=== PATIENT | male | born 1930 | race Caucasian/White ===

== ENCOUNTER 2020-04-06 21:47 | Inpatient (IN) ==
[2020-04-06 22:21] LABS: Hematocrit 48.1 % (42.0-52.0); Hemoglobin 15.8 gm/dL (13.5-18.0); Mean Cell Volume 94.1 fl (78-100); Mean Corpuscular Hemoglobin 30.9 pg (27-31); Mean Corpuscular Hgb Conc 32.8 g/dl (32-36); Mean Platelet Volume 10.2 fl (8-11.3); Neutrophil # 1.7 K/mm3 (1.3-6.0); Neutrophil % 56.7 % (42-75.0); Platelet Count 92 K/mm3 (150-450); Red Blood Count 5.11 M/mm3 (4.7-6.0); Red Cell Distribution Width 12.5 % (11.5-14.0)
[2020-04-06] MEDS ORDERED: cefTRIAXone SODIUM 1,000 MG/100 ML BAG IV ONE (22:26)
[2020-04-06 22:30] LABS: Albumin * 3.3 gm/dl (3.4-5.0); Anion Gap 10.1 mmol/L (6.8-13.8); BUN/Creatinine Ratio 17.1 (9.0-21.6); Bilirubin, Total 0.9 mg/dL (0.0-1.1); Ca. Corrected For Albumin 8.5 mg/dL (8.4-10.2); Calcium * 8.3 mg/dL (7.9-10.9); Potassium 4.1 mmol/L (3.4-4.6); Total Protein 6.9 gm/dL (6.2-8.2)
[2020-04-06] MEDS: NORMAL SALINE 1,000 ML IV SCH (22:34)
--- NOTE | 2020-04-06 22:51 | ERNOTE ---
Medical Problem HPI - Narrative Date of Service: 04/06/20 - General Chief Complaint: Fever Time Seen by Provider: 04/06/20 22:14 Source: patient, family - Immun/Allergies/Home Medications Immunizations: IMMUNIZATION HX Immunizations Up to Date No History of Influenza Vaccine More Information Required Hx Pneumococcal Vaccination Yes Allergies/Adverse Reactions: Allergies No Known Allergies Allergy (Verified 09/12/18 09:00) Home Medications: HOME MEDICATIONS Aspirin [Aspirin EC] 81 mg PO DAILY 07/19/18 [Last Taken Unknown] cetirizine 10 mg tablet 10 mg PO DAILY PRN #30 tab 12/11/18 [Last Taken Unknown] simvastatin 20 mg tablet 20 mg PO HS #90 tab 09/02/19 [Last Taken Unknown] metoprolol tartrate 25 mg tablet 25 mg PO BID #180 tab 10/31/19 [Last Taken Unknown] - History of Present History Narrative: Patient is brought to the emergency room for fever, increasing severity of urinary incontinence and stool incontinence, increasing confusion and weakness. Symptoms have worsened over the last 24 hours. He did have an exposure to coronavirus over the weekend. Patient has underlying dementia. No recent falls Timing: getting worse Review of Systems - Review of Systems Constitutional: Present: fever, chills, weakness, fatigue ENT: Present: no symptoms reported Respiratory: Present: no symptoms reported Cardiology: Present: no symptoms reported Gastrointestinal/Abdominal: Present: diarrhea. Absent: vomiting Genitourinary: Present: other - increased episodes of incontinence. Skin: Absent: rash Psych: Present: no symptoms reported Medical History (Last Reviewed 04/06/20 @ 22:48 by Maria Antonia Bhatti MD) HLD (hyperlipidemia) HTN (hypertension) Surgical History: Surgical History (Last Reviewed 04/06/20 @ 22:48 by Maria Antonia Bhatti MD) Cataract Onset Date: ~2005 Hx laparoscopic cholecystectomy Hx of cardiac cath Hx of total knee arthroplasty Family History: Family History (Last Reviewed 04/06/20 @ 22:48 by Maria Antonia Bhatti MD) Father Cancer Myocardial infarction Mother Dementia Sister Dementia Brother Heart disease Social History: (Last Reviewed 04/06/20 @ 22:48 by Maria Antonia Bhatti MD) Social History: Marital status: current occupational status: retired Highest education level completed: high school graduate Service: Yes Tobacco: Smoking Status: Never smoker Alcohol: alcohol intake: never Substance Use: substance use type: does not use Dietary Habits: caffeine: Yes Physical Exam - Physical Exam General Appearance: Present: alert, no apparent distress, other - dementia noted, answers questions appropriately. lips are dry Head Exam: Present: normal inspection, no evidence of injury Eye Exam: Normal inspection: bilateral, PERRL: bilateral Ears, Nose, Throat: Present: normal ENT inspection, normal pharynx Neck: Present: normal inspection, supple Respiratory: Present: no respiratory distress, lungs clear Cardiovascular/Chest: Present: regular rate, rhythm Gastrointestinal/Abdominal: Present: normal bowel sounds, soft, other - There is a ventral hernia noted on the right side of the umbilicus. This is nontender. The patient has mild suprapubic tenderness. no rebound, guarding or peritonitis. Male Genitals Exam: Present: normal genitalia - no sores or lesions Back Exam: Present: normal inspection Extremity Exam: Present: non-tender, no edema - strength is maintained 5/5 all four ext Skin Exam: Present: normal color, warm/dry Progress - Results and Orders Patient's Lab Results:: I have reviewed the patient's lab results. Results and Orders: Laboratory Tests 04/06/20 04/06/20 04/06/20 22:10 22:10 22:10 WBC 3.0 L Hgb 15.8 Hct 48.1 Plt Count 92 L Monocytes % 10.4 H Neutrophils # 1.7 Lymphocytes # 0.95 L Sodium 137 Potassium 4.1 Chloride 103 BUN 29 H Creatinine 1.70 H Est GFR (Non-Af Amer) 41 L D Random Glucose 117 H Lactic Acid, Venous 1.9 AST 42 ALT 27 Urine Glucose (UA) Urine Ketones Urine Blood Urine Nitrate Urine Bilirubin Prot Sulfosalicylic Acd Urine Urobilinogen Ur Leukocyte Esterase Urine RBC Urine WBC Ur Epithelial Cells Urine Bacteria Influenza Type A Ag Influenza Type B Ag 04/06/20 04/06/20 22:28 22:55 WBC Hgb Hct Plt Count Monocytes % Neutrophils # Lymphocytes # Sodium Potassium Chloride BUN Creatinine Est GFR (Non-Af Amer) Random Glucose Lactic Acid, Venous AST ALT Urine Glucose (UA) Negative Urine Ketones 5 Urine Blood 5 H Urine Nitrate Negative Urine Bilirubin Negative Prot Sulfosalicylic Acd Negative Urine Urobilinogen Normal Ur Leukocyte Esterase Negative Urine RBC 0-5 Urine WBC None seen Ur Epithelial Cells None seen Urine Bacteria None seen Influenza Type A Ag Negative Influenza Type B Ag Negative - Vital Signs Patient's Vital Signs:: I have reviewed the patient's vital signs. Vital Signs: Vital Signs 04/06/20 21:59 04/06/20 22:34 Temperature 37.8 C Pulse Rate 95 91 Respiratory Rate 20 20 Blood Pressure 135/86 130/67 O2 Sat by Pulse Oximetry 96 97 - EKG EKG #1 EKG: NSR EKG read: Interp. by me EKG Comments: EKG shows normal sinus rhythm, ventricular rate is 92, no ST changes noted. - X-Ray X-Ray #1 X-Ray: chest Interpretation: Interp. by me X-ray Comments: patchy right lung mid infiltrate. - Progress/Reassessment Chief Complaint: Fever Progress Note-Subjective: 04/06/20 23:52 Patient's labs are essentially unremarkable, his creatinine is mildly elevated over his baseline which was drawn a few months ago. His white blood cell count is normal, lactic is normal, the urine is also normal. His chest x-ray shows right-sided patchy infiltrate. After the patient arrived he did develop a fever of 102. He is given 1 L of fluids, 650 of Tylenol. I discussed the community- acquired pneumonia in an 89-year-old with underlying medical conditions including dementia with hospitalist on-call, Dr. Bradshaw who agrees that this patient should be admitted here for observation and care of the community- acquired pneumonia, Covid test is pending. Patient is given Rocephin, Zithromax for coverage here of the community-acquired pneumonia, this is after blood cultures have been obtained. 04/07/20 00:35 Phoned by the lab for critical result, his Covid test has returned positive. He will be admitted to the unit rather than [facility] floor. He remained stable. Recent order for ibuprofen to try to bring fever down. Departure Clinical Impression: CAP (community acquired pneumonia), Fever, COVID-19 - Departure Disposition: Still a patient Condition: Fair
[2020-04-06 23:01] LABS: Urine Bilirubin Negative (NEGATIVE); Urine Ketone 5 mg/dL (NEGATIVE); Urine Nitrite Negative (NEGATIVE); Urine Protein 100 mg/dL (NEGATIVE); Urine Specific Gravity >=1.030 SP.GR. (1.005-1.030); Urine Urobilinogen Normal (NORMAL); Urine pH 5.5 pH (5.0-7.0)
[2020-04-06 23:08] LABS: Urine Appearance Clear (CLEAR); Urine Bacteria None Seen; Urine Blood 5 /ul (NEGATIVE); Urine Color Dark Yellow; Urine RBC 0-5 /hpf (0-5); Urine WBC None Seen /hpf (0-5)
[2020-04-06] MEDS ORDERED: ACETAMINOPHEN 325 MG TABLET PO ONE (23:16)
[2020-04-06] MEDS ORDERED: AZITHROMYCIN 250 MG TABLET PO ONE (23:41)
[2020-04-07] MEDS ORDERED: IBUPROFEN 600 MG TABLET PO ONE (00:20)
[2020-04-07] MEDS: NORMAL SALINE 1,000 ML IV SCH ×2 (05:50→05:51)
[2020-04-07] MEDS ORDERED: NORMAL SALINE 1,000 ML IV ONE (08:48)
[2020-04-07] MEDS ORDERED: NORMAL SALINE 1,000 ML IV PRN (09:12)
[2020-04-07] MEDS: METOPROLOL TARTRATE 25 MG TABLET PO SCH ×2 (09:33→21:15)
[2020-04-07] MEDS: ASPIRIN 81 MG TABLET.DR PO SCH (09:33)
[2020-04-07] MEDS: ENOXAPARIN SODIUM 40 MG/0.4 ML SYRG SC SCH ×2 (09:33→21:15)
[2020-04-07] MEDS ORDERED: FLU VACC QS2020-21(6MOS UP)/PF 60 MCG/0.5 ML SYRINGE IM ONE (10:00)
[2020-04-07 17:55] LABS: Anion Gap 8.2 mmol/L (6.8-13.8); BUN/Creatinine Ratio 21.7 (9.0-21.6); Calcium * 7.7 mg/dL (7.9-10.9); Carbon Dioxide 28.5 mmol/L (24-32.6); Estimated Creat Clear 52.2; Potassium 3.7 mmol/L (3.4-4.6)
[2020-04-07] MEDS: SIMVASTATIN 20 MG TABLET PO SCH (21:15)
[2020-04-07] MEDS: ACETAMINOPHEN 500 MG TABLET PO PRN (21:16)
[2020-04-08] MEDS: ACETAMINOPHEN 500 MG TABLET PO PRN (06:29)
--- NOTE | 2020-04-08 08:23 | HP ---
Chief Complaint - Chief Complaint Date of Service: 04/07/20 Time of Service: 08:45 Chief Complaint: fever, weakness History of Present Illness: 89-year-old male with history of hypertension, hyperlipidemia, dementia brought into the hospital due to fever, and weakness. Patient was also having some incontinent bowel and bladder issues. Patient was found be positive for COVID- 19. X-ray concerning for possible right middle lobe pneumonia. Aside from an acute kidney injury seen in the ER blood work was normal including normal white blood cell count, normal lactic acid, and his vital signs been normal. Patient has been afebrile since being in the hospital. Patient is on room air, denies cough or shortness of breath. Patient was placed under observation and brought to the [facility] due to positive COVID-19 as well as his fever and weakness. Patient seen in the unit was pleasant and had no concerns. Medical History (Last Reviewed 04/07/20 @ 03:04 by Carissa Aggarwal RN) HLD (hyperlipidemia) HTN (hypertension) Surgical History: Surgical History (Last Reviewed 04/07/20 @ 03:04 by Carissa Aggarwal RN) Cataract Onset Date: ~2005 Hx laparoscopic cholecystectomy Hx of cardiac cath Hx of total knee arthroplasty Family History: Family History (Last Reviewed 04/06/20 @ 22:48 by Maria Antonia Bhatti MD) Father Cancer Myocardial infarction Mother Dementia Sister Dementia Brother Heart disease Social History: (Last Reviewed 04/06/20 @ 22:48 by Maria Antonia Bhatti MD) Social History: Marital status: current occupational status: retired Highest education level completed: high school graduate Service: Yes Tobacco: Smoking Status: Never smoker Alcohol: alcohol intake: never Substance Use: substance use type: does not use Dietary Habits: caffeine: Yes Review Of Systems (GEN) - Review of Systems Generalized/Overall Review: Present: Weakness. Absent: Chills, Fever EENTM: Present: No Symptoms Reported Respiratory: Present: No Symptoms Reported. Absent: Cough, Shortness of Breath Cardiac: Absent: Chest Pain, Edema, Palpitations Abdominal: Present: No Symptoms Reported Genitourinary: Present: No Symptoms Reported Neurological: Present: Pre-existing Deficit - Dementia. Absent: Headache Skin: Present: No Symptoms Reported Endocrine: Present: No Symptoms Reported Immunizations: IMMUNIZATION HX Immunizations Up to Date No History of Influenza Vaccine More Information Required Hx Pneumococcal Vaccination Yes Allergies/Adverse Reactions: Allergies Allergy/AdvReac Type Severity Reaction Status Date / Time No Known Allergies Allergy Verified 09/12/18 09:00 Home Medications: HOME MEDICATIONS Aspirin [Aspirin EC] 81 mg PO DAILY 07/19/18 [Last Taken Unknown] cetirizine 10 mg tablet 10 mg PO DAILY PRN #30 tab 12/11/18 [Last Taken Unknown] simvastatin 20 mg tablet 20 mg PO HS #90 tab 09/02/19 [Last Taken Unknown] metoprolol tartrate 25 mg tablet 25 mg PO BID #180 tab 10/31/19 [Last Taken Unknown] Exam - Exam Vital Signs: Vital Signs - Last Taken Temp 37.4 C 04/08/20 07:30 Pulse 82 04/08/20 05:32 Resp 16 04/08/20 05:32 BP 130/58 04/08/20 05:32 Pulse Ox 96 04/08/20 05:32 Constitutional: Present: Alert, Cooperative, No distress. Absent: Oriented x3 - X2 ENT Exam: Present: hearing grossly normal. Absent: nasal congestion, nasal drainage Eye Exam: bilateral eye: normal inspection, EOMI Neck: Present: non-tender, supple Respiratory: Present: lungs clear, normal breath sounds Cardiovascular/Chest: Present: regular rate, rhythm, no murmur Peripheral Pulses: dorsalis-pedis (R): 2+, dorsalis-pedis (L): 2+ Abdomen: Present: soft, nontender, nondistended Skin Exam: Present: normal color, warm/dry Appearance: Present: appropriate appearance, appropriate insight Eye contact: Present: cooperative, good eye contact Thoughts: Present: normal mood /affect Diagnostic Studies: Abnormal Lab Results 04/07/20 Range/Units 17:26 BUN 26 H (6-23) mg/dL BUN/Creatinine Ratio 21.7 H (9.0-21.6) Calcium 7.7 L (7.9-10.9) mg/dL Microbiology 04/06/20 22:40 Blood Culture - Preliminary Blood NO GROWTH 24 HOURS 04/06/20 22:10 Blood Culture - Preliminary Blood NO GROWTH 24 HOURS Laboratory Results WBC 3.0 K/mm3 (4.0-10.5) L 04/06/20 22:10 RBC 5.11 M/mm3 (4.7-6.0) 04/06/20 22:10 Hgb 15.8 gm/dL (13.5-18.0) 04/06/20 22:10 Hct 48.1 % (42.0-52.0) 04/06/20 22:10 MCV 94.1 fl (78-100) 04/06/20 22:10 MCH 30.9 pg (27-31) 04/06/20 22:10 MCHC 32.8 g/dl (32-36) 04/06/20 22:10 RDW 12.5 % (11.5-14.0) 04/06/20 22:10 Plt Count 92 K/mm3 (150-450) L 04/06/20 22:10 MPV 10.2 fl (8-11.3) 04/06/20 22:10 Immature Gran % (Auto) 0.30 % (0.001-0.429) 04/06/20 22:10 Immature Gran # (Auto) 0.01 K/mm3 (0.000-0.0310) 04/06/20 22:10 Neutrophils % 56.7 % (42-75.0) 04/06/20 22:10 Lymphocytes % 31.9 % (20-51) 04/06/20 22:10 Monocytes % 10.4 % (0.0-9) H 04/06/20 22:10 Eosinophils % 0.0 % (0.0-3.0) 04/06/20 22:10 Basophils % 0.7 % (0.0-1.0) 04/06/20 22:10 Nucleated RBC % 0.0 k/mm3 (0-1) 04/06/20 22:10 Neutrophils # 1.7 K/mm3 (1.3-6.0) 04/06/20 22:10 Lymphocytes # 0.95 k/mm3 (1.5-3.5) L 04/06/20 22:10 Monocytes # 0.3 k/mm3 (0.0-1.0) 04/06/20 22:10 Eosinophils # 0.0 k/mm3 (0.0-0.7) 04/06/20 22:10 Absolute Basophils 0.0 k/mm3 (0.0-0.1) 04/06/20 22:10 Sodium 139 mmol/L (132-142) 04/07/20 17:26 Plasma Sodium 139 mmol/L (130-142) 04/07/20 17:26 Potassium 3.7 mmol/L (3.4-4.6) 04/07/20 17:26 Chloride 106 mmol/L (97-106) 04/07/20 17:26 Carbon Dioxide 28.5 mmol/L (24-32.6) 04/07/20 17:26 Anion Gap 8.2 mmol/L (6.8-13.8) 04/07/20 17:26 BUN 26 mg/dL (6-23) H 04/07/20 17:26 Creatinine 1.20 mg/dL (0.4-1.4) 04/07/20 17:26 Est GFR (Non-Af Amer) 61 mL/min (60-130) D 04/07/20 17: BUN/Creatinine Ratio 21.7 (9.0-21.6) H 04/07/20 17:26 Random Glucose 94 mg/dL (70-110) 04/07/20 17:26 Lactic Acid, Venous 1.9 mmol/L (0.4-2.0) 04/06/20 22:10 Calcium 7.7 mg/dL (7.9-10.9) L 04/07/20 17:26 Calcium Adj for Albumin 8.5 mg/dL (8.4-10.2) 04/06/20 22:10 Total Bilirubin 0.9 mg/dL (0.0-1.1) 04/06/20 22:10 AST 42 U/L (0-48) 04/06/20 22:10 ALT 27 U/L (19-67) 04/06/20 22:10 Alkaline Phosphatase 53 U/L (50-170) 04/06/20 22:10 Total Protein 6.9 gm/dL (6.2-8.2) 04/06/20 22:10 Albumin 3.3 gm/dl (3.4-5.0) L 04/06/20 22:10 Urine Color Dark yellow 04/06/20 22:28 Urine Appearance Clear (CLEAR) 04/06/20 22:28 Urine pH 5.5 pH (5.0-7.0) 04/06/20 22:28 Ur Specific [place] >=1.030 SP.GR. (1.005-1.030) 04/06/20 22:28 Urine Protein 100 mg/dL (NEGATIVE) H 04/06/20 22:28 Urine Glucose (UA) Negative mg/dL (NEGATIVE) 04/06/20 22: Urine Ketones 5 mg/dL (NEGATIVE) 04/06/20 22:28 Urine Blood 5 /ul (NEGATIVE) H 04/06/20 22:28 Urine Nitrate Negative (NEGATIVE) 04/06/20 22: Urine Bilirubin Negative mg/dl (NEGATIVE) 04/06/20 22:28 Prot Sulfosalicylic Acd Negative mg/dL (0) 04/06/20 22:28 Urine Urobilinogen Normal EU/dl (NORMAL) 04/06/20 22: Ur Leukocyte Esterase Negative /ul (NEGATIVE) 04/06/20 22: Urine RBC 0-5 /hpf (0-5) 04/06/20 22: Urine WBC None seen /hpf (0-5) 04/06/20 22: Ur Epithelial Cells None seen /hpf (0-5) 04/06/20 22:28 Urine Bacteria None seen (NONE) 04/06/20 22:28 Urine Culture Comments No culture indicated 04/06/20 22:28 Influenza Type A Ag Negative (NEGATIVE) 04/06/20 22:55 Influenza Type B Ag Negative (NEGATIVE) 04/06/20 22:55 SARS-CoV-2 (PCR) Detected (NotDetected) H 04/06/20 22:47 Assessment/Plan - Narrative Narrative: Very pleasantly demented 89-year-old male with history of hypertension, hyperlipidemia, and dementia placed in observation due to positive COVID-19 test and suspected COVID-19 pneumonia. Aside from an acute kidney injury, blood work within normal limits in the ER. Patient not requiring supplemental oxygen to maintain sats. Patient with normal appetite. Due to clinical picture no steroids to be started at this time but will start him on Lovenox twice daily. If patient begins to have more symptoms secondary to the infection including cough, shortness of breath, or fevers then will start him on prednisone. Restarted home medications for his blood pressure. Currently well controlled. Patient started on regular diet. Normal saline running at 125 an hour x1 bag, will recheck CMP in the morning to look at kidney function. Electrolytes within normal notes. Nurse to call with questions or concerns. Unless clinical picture changes, patient likely to be discharged home tomorrow. - Assessment/Plan (1) Fever Problem: Acute (2) COVID-19 Problem: Acute (3) Hypertension Problem: Acute (4) Acute kidney injury Problem: Acute
[2020-04-08] MEDS ORDERED: ACETAMINOPHEN 325 MG TABLET PO SCH (09:00)
[2020-04-08] MEDS: METOPROLOL TARTRATE 25 MG TABLET PO SCH ×2 (09:19→21:40)
[2020-04-08] MEDS: ENOXAPARIN SODIUM 40 MG/0.4 ML SYRG SC SCH ×2 (09:19→21:41)
[2020-04-08] MEDS: predniSONE 20 MG TABLET PO SCH (09:19)
[2020-04-08] MEDS: ASPIRIN 81 MG TABLET.DR PO SCH (09:19)
[2020-04-08] MEDS: ACETAMINOPHEN 325 MG TABLET PO SCH ×2 (11:53→19:23)
--- NOTE | 2020-04-08 16:18 | PN ---
Subjective - Date and Time Seen Date: 04/08/20 Time: 16:13 Subjective Narrative: Mynor is resting comfortably in his bed at this time. Patient did have multiple fevers overnight and was started on Tylenol. Patient feels well and is breathing easy. Nurse concerned with his weakness, has trouble getting up to use the restroom due to it. Cannot order physical therapy at this time due to active COVID-19 infection. His vital signs are stable otherwise and there are no acute events overnight. Objective - Review of Systems Generalized/Overall Review: Reports: Weakness, Fever. Denies: Chills EENTM: Reports: No Symptoms Reported Respiratory: Reports: No Symptoms Reported Cardiac: Reports: No Symptoms Reported Abdominal: Reports: No Symptoms Reported Genitourinary Symptoms: Reports: No Symptoms Reported Musculoskeletal Complaints: Reports: No Symptoms Reported Neurological: Reports: No Symptoms Reported Skin: Reports: No Symptoms Reported - Vitals Vitals: Last Vital Signs Temp 36.8 C 04/08/20 15:00 Pulse 62 04/08/20 15:00 Resp 16 04/08/20 15:00 BP 139/91 H 04/08/20 15:00 Pulse Ox 97 04/08/20 15:00 - Abnormal Lab Findings Abnormal Lab Findings: Abnormal Lab Results 04/07/20 Range/Units 17:26 BUN 26 H (6-23) mg/dL BUN/Creatinine Ratio 21.7 H (9.0-21.6) Calcium 7.7 L (7.9-10.9) mg/dL - Exam Constitutional: Present: Alert, Oriented x3, No distress ENT Exam: Present: hard of hearing. Absent: nasal congestion, nasal drainage Respiratory: Present: lungs clear, normal breath sounds, no respiratory distress Cardiovascular/Chest: Present: regular rate, rhythm, no murmur Abdomen: Present: Normal bowel sounds, soft, nontender, nondistended Extremity: Present: non-tender. Absent: lower extremity edema Skin Exam: Present: normal color, warm/dry Appearance: Present: appropriate appearance, impaired insight Eye contact: Present: cooperative, good eye contact Thoughts: Present: normal thought pattern, normal mood /affect Assessment/Plan Plan Narrative: Patient unable to go home today due to fevers and weakness as previously anticipated. Patient made inpatient. Patient started on steroids this morning. Will repeat lab work this afternoon. Kidney function had resolved back to baseline, found to be within normal limits. Patient not requiring supplemental oxygen. Tylenol scheduled for his fevers and aches. Cannot order PT at this time due to active COVID-19 infection but patient deftly would benefit from physical therapy. Like left order this after he is no longer contagious. Continue current diet. Hypertension well controlled. Acute kidney injury resolved. We will continue to monitor patient, nurse to call questions or concerns. Patient is on Lovenox twice daily. - Problems/Diagnosis (1) COVID-19 Problem: Acute (2) Fever Problem: Acute (3) Hypertension Problem: Acute (4) Acute kidney injury Problem: Acute (5) Pneumonia due to COVID-19 virus Problem: Acute
[2020-04-08 17:16] LABS: Hematocrit 45.5 % (42.0-52.0); Hemoglobin 15.2 gm/dL (13.5-18.0); Mean Cell Volume 91.7 fl (78-100); Mean Corpuscular Hemoglobin 30.6 pg (27-31); Mean Corpuscular Hgb Conc 33.4 g/dl (32-36); Platelet Count 83 K/mm3 (150-450); Red Blood Count 4.96 M/mm3 (4.7-6.0); Red Cell Distribution Width 12.1 % (11.5-14.0); White Blood Count 1.3 K/mm3 (4.0-10.5)
[2020-04-08 17:19] LABS: Total Cells Counted 100
[2020-04-08 17:30] LABS: Lymphocyte 37 % (20-51); Monocyte 3 % (0-9); Neutrophil 60 % (42-75); Neutrophil # 0.8 K/mm3 (1.3-6.0); Platelet Estimate Decreased (NORMAL); RBC Morphology Normal (NORMAL)
[2020-04-08 17:56] LABS: Anion Gap 10.1 mmol/L (6.8-13.8); BUN/Creatinine Ratio 16.4 (9.0-21.6); Calcium * 7.9 mg/dL (7.9-10.9); Estimated Creat Clear 51.4; Potassium 4.1 mmol/L (3.4-4.6)
[2020-04-08] MEDS ORDERED: AZITHROMYCIN 250 MG TABLET PO ONE (19:00)
[2020-04-08] MEDS: SIMVASTATIN 20 MG TABLET PO SCH (21:41)
[2020-04-09] MEDS: ACETAMINOPHEN 325 MG TABLET PO SCH ×2 (01:47→07:18)
[2020-04-09] MEDS: predniSONE 20 MG TABLET PO SCH (08:16)
[2020-04-09] MEDS: ASPIRIN 81 MG TABLET.DR PO SCH (08:16)
[2020-04-09] MEDS: ENOXAPARIN SODIUM 40 MG/0.4 ML SYRG SC SCH ×2 (08:17→20:23)
[2020-04-09] MEDS: METOPROLOL TARTRATE 25 MG TABLET PO SCH ×2 (08:17→20:24)
[2020-04-09 09:09] LABS: Hematocrit 43.7 % (42.0-52.0); Hemoglobin 14.9 gm/dL (13.5-18.0); Mean Cell Volume 90.5 fl (78-100); Mean Corpuscular Hemoglobin 30.8 pg (27-31); Mean Corpuscular Hgb Conc 34.1 g/dl (32-36); Mean Platelet Volume 10.2 fl (8-11.3); Neutrophil # 2.5 K/mm3 (1.3-6.0); Neutrophil % 79.1 % (42-75.0); Platelet Count 104 K/mm3 (150-450); Red Blood Count 4.83 M/mm3 (4.7-6.0); Red Cell Distribution Width 12.1 % (11.5-14.0); White Blood Count 3.2 K/mm3 (4.0-10.5)
[2020-04-09] MEDS ORDERED: ACETAMINOPHEN 325 MG TABLET PO PRN (10:26)
--- NOTE | 2020-04-09 10:28 | PN ---
Subjective - Date and Time Seen Date: 04/09/20 Time: 09:59 Subjective Narrative: He denies chest pain, shortness of breath or cough. Nursing staff states he has not had any fevers since yesterday but he is also on Tylenol [id number]. Objective - Review of Systems Generalized/Overall Review: Denies: Chills, Fever Respiratory: Denies: Cough, Shortness of Breath Cardiac: Denies: Chest Pain Abdominal: Denies: Abdominal Pain Misc: All systems neg except as marked - Vitals Vitals: Last Vital Signs Temp 36.7 C 04/09/20 06:00 Pulse 91 04/09/20 08:17 Resp 20 04/09/20 06:00 BP 136/94 H 04/09/20 08:17 Pulse Ox 95 04/09/20 06:00 - Abnormal Lab Findings Abnormal Lab Findings: Abnormal Lab Results 04/08/20 04/08/20 04/09/20 Range/Units 17:10 17:10 08:50 WBC 1.3 L D 3.2 L D (4.0-10.5) K/mm3 Plt Count 83 L 104 L (150-450) K/mm3 Immature Gran % (Auto) 0.60 H (0.001-0.429) % Neutrophils % 79.1 H (42-75.0) % Lymphocytes % 14.4 L (20-51) % Neutrophils # (Manual) 0.8 L (1.3-6.0) K/mm3 Lymphocytes # 0.46 L (1.5-3.5) k/mm3 Lymphocytes # (Manual) 0.5 L (1.5-3.5) k/mm3 Platelet Estimate Decreased L (NORMAL) Random Glucose 154 H D (70-110) mg/dL - Exam Constitutional: Present: Alert, Cooperative, Well developed, Well nourished, No distress, Elderly ENT Exam: Present: hearing grossly normal Neck: Present: non-tender, supple. Absent: lymphadenopathy (R), lymphadenopathy (L) Respiratory: Present: lungs clear, no respiratory distress Cardiovascular/Chest: Present: regular rate, rhythm, no edema Abdomen: Present: Normal bowel sounds, soft, nontender Extremity: Present: no pedal edema Skin Exam: Present: normal color, warm/dry Neurologic: Present: alert, normal mood/affect Appearance: Present: appropriate appearance Eye contact: Present: cooperative Thoughts: Present: normal thought pattern, normal mood /affect Assessment/Plan Plan Narrative: 89-year-old male with a past medical history of hypertension hyperlipidemia and dementia presents with fever and weakness. He was found to have acute kidney injury and be positive for Covid 19 COVID-19. He received IV fluid hydration, and did not require oxygen supplementation. On the day of planned discharge she developed a fever and was subsequently started on azithromycin and ceftriaxone. Today he is stable and has no complaints. He has not had fever for the past 24 hours but has been on Tylenol [id number] every 6 hours scheduled. I will change his Tylenol to as needed. He is also weak and deconditioned and I have ordered physical therapy. Plan #1 continue with ceftriaxone and azithromycin day 1 #2 change Tylenol to 6 achieve milligrams every 6 hours as needed #3 physical therapy ordered #4 continue with home home medications for comorbidities. #5 possible discharge planning if he remains afebrile without Tylenol for the next 24 hours. He will be discharged home with home health. - Problems/Diagnosis (1) Pneumonia due to COVID-19 virus Problem: Acute (2) Acute kidney injury Problem: Acute (3) Fever Problem: Acute (4) Hypertension Problem: Acute
[2020-04-09] MEDS: SIMVASTATIN 20 MG TABLET PO SCH (20:24)
[2020-04-09] MEDS ORDERED: AZITHROMYCIN 250 MG TABLET PO SCH (21:00)
[2020-04-10 07:34] LABS: Hematocrit 46.1 % (42.0-52.0); Hemoglobin 15.6 gm/dL (13.5-18.0); Mean Cell Volume 89.7 fl (78-100); Mean Corpuscular Hemoglobin 30.4 pg (27-31); Mean Corpuscular Hgb Conc 33.8 g/dl (32-36); Mean Platelet Volume 9.9 fl (8-11.3); Neutrophil # 2.2 K/mm3 (1.3-6.0); Neutrophil % 59.3 % (42-75.0); Platelet Count 124 K/mm3 (150-450); Red Blood Count 5.14 M/mm3 (4.7-6.0); Red Cell Distribution Width 11.9 % (11.5-14.0); White Blood Count 3.6 K/mm3 (4.0-10.5)
[2020-04-10 07:47] LABS: Albumin * 2.9 gm/dl (3.4-5.0); Anion Gap 12.5 mmol/L (6.8-13.8); BUN/Creatinine Ratio 17.6 (9.0-21.6); Bilirubin, Total 0.8 mg/dL (0.0-1.1); Ca. Corrected For Albumin 8.5 mg/dL (8.4-10.2); Calcium * 7.9 mg/dL (7.9-10.9); Carbon Dioxide 24.3 mmol/L (24-32.6); Potassium 3.8 mmol/L (3.4-4.6); Total Protein 6.5 gm/dL (6.2-8.2)
[2020-04-10] MEDS: ENOXAPARIN SODIUM 40 MG/0.4 ML SYRG SC SCH (08:03)
[2020-04-10] MEDS: METOPROLOL TARTRATE 25 MG TABLET PO SCH (08:03)
[2020-04-10] MEDS: ASPIRIN 81 MG TABLET.DR PO SCH (08:03)
[2020-04-10] MEDS: predniSONE 20 MG TABLET PO SCH (08:03)
--- NOTE | 2020-04-10 10:37 | DS ---
(1) Pneumonia due to COVID-19 virus Problem: Acute (2) Acute kidney injury Problem: Acute (3) Fever Problem: Acute (4) Hypertension Problem: Acute Hospital Course: 89-year-old male with a past medical history of hypertension hyperlipidemia and dementia presents with fever and weakness. He was found to have acute kidney injury and be positive for Covid 19 COVID-19. He received IV fluid hydration, and did not require oxygen supplementation. On the day of planned discharge she developed a fever and was subsequently started on azithromycin and ceftriaxone. Today he is stable and has no complaints. He continues to be afebrile. I will send him home on 3 more days of azithromycin 250 mg daily. He is stable to be discharged home today with home health. Mynor Albert is homebound due to having COVID-19. The need for retirement is for medication management and monitoring of vitals. The need for physical therapy is for strengthening, endurance, gait/balance issues, mobility issues, ADL teaching to be safe. The need for home health care skilled services is directly related to the time spent [id number] with the person. Procedures Performed: none Results and Findings: Pending Mircobiology Results 04/06/20 22:40 Blood Blood Culture - Preliminary NO GROWTH AFTER 48 HOURS 04/06/20 22:10 Blood Blood Culture - Preliminary NO GROWTH AFTER 48 HOURS Lab Pending Results 04/06/20 22:10: WBC 3.0 L, RBC 5.11, Hgb 15.8, Hct 48.1, MCV 94.1, MCH 30.9, MCHC 32.8, RDW 12.5, Plt Count 92 L, MPV 10.2, Immature Gran % (Auto) 0.30, Immature Gran # (Auto) 0.01, Neutrophils % 56.7, Lymphocytes % 31.9, Monocytes % 10.4 H, Eosinophils % 0.0, Basophils % 0.7, Nucleated RBC % 0.0, Neutrophils # 1.7, Lymphocytes # 0.95 L, Monocytes # 0.3, Eosinophils # 0.0, Absolute Basophils 0.0 04/06/20 22:10: Sodium 137, Plasma Sodium 137, Potassium 4.1, Chloride 103, Carbon Dioxide 28.0, Anion Gap 10.1, BUN 29 H, Creatinine 1.70 H, Est GFR (Non- Af Amer) 41 L D, BUN/Creatinine Ratio 17.1, Random Glucose 117 H, Calcium 8.3, Calcium Adj for Albumin 8.5, Total Bilirubin 0.9, AST 42, ALT 27, Alkaline Phosphatase 53, Total Protein 6.9, Albumin 3.3 L 04/06/20 22:10: Lactic Acid, Venous 1.9 04/06/20 22:28: Urine Color Dark yellow, Urine Appearance Clear, Urine pH 5.5, Ur Specific [place] >=1.030, Urine Protein 100 H, Urine Glucose (UA) Negative, Urine Ketones 5, Urine Blood 5 H, Urine Nitrate Negative, Urine Bilirubin Negative, Prot Sulfosalicylic Acd Negative, Urine Urobilinogen Normal, Ur Leukocyte Esterase Negative, Urine RBC 0-5, Urine WBC None seen, Ur Epithelial Cells None seen, Urine Bacteria None seen, Urine Culture Comments No culture indicated 04/06/20 22:47: SARS-CoV-2 (PCR) Detected H 04/06/20 22:55: Influenza Type A Ag Negative, Influenza Type B Ag Negative 04/07/20 17:26: Sodium 139, Plasma Sodium 139, Potassium 3.7, Chloride 106, Carbon Dioxide 28.5, Anion Gap 8.2, BUN 26 H, Creatinine 1.20, Est GFR (Non-Af Amer) 61 D, BUN/Creatinine Ratio 21.7 H, Random Glucose 94, Calcium 7.7 L 04/08/20 17:10: WBC 1.3 L D, RBC 4.96, Hgb 15.2, Hct 45.5, MCV 91.7, MCH 30.6, MCHC 33.4, RDW 12.1, Plt Count 83 L, MPV 10.0, Neutrophils % (Manual) 60, Lymphocytes % (Manual) 37, Monocytes % (Manual) 3, Neutrophils # (Manual) 0.8 L, Lymphocytes # (Manual) 0.5 L, Monocytes # (Manual) 0.0, Platelet Estimate Decreased L, RBC Morphology Normal 04/08/20 17:10: Sodium 136, Plasma Sodium 137, Potassium 4.1, Chloride 102, Carbon Dioxide 28.0, Anion Gap 10.1, BUN 20, Creatinine 1.22, Est GFR (Non-Af Amer) 60, BUN/Creatinine Ratio 16.4, Random Glucose 154 H D, Calcium 7.9 04/09/20 08:50: WBC 3.2 L D, RBC 4.83, Hgb 14.9, Hct 43.7, MCV 90.5, MCH 30.8, MCHC 34.1, RDW 12.1, Plt Count 104 L, MPV 10.2, Immature Gran % (Auto) 0.60 H, Immature Gran # (Auto) 0.02, Neutrophils % 79.1 H, Lymphocytes % 14.4 L, Monocytes % 5.6, Eosinophils % 0.0, Basophils % 0.3, Nucleated RBC % 0.0, Neutrophils # 2.5, Lymphocytes # 0.46 L, Monocytes # 0.2, Eosinophils # 0.0, Absolute Basophils 0.0 04/10/20 07:24: WBC 3.6 L, RBC 5.14, Hgb 15.6, Hct 46.1, MCV 89.7, MCH 30.4, MCHC 33.8, RDW 11.9, Plt Count 124 L, MPV 9.9, Immature Gran % (Auto) 0.80 H, Immature Gran # (Auto) 0.03, Neutrophils % 59.3, Lymphocytes % 30.0, Monocytes % 9.6 H, Eosinophils % 0.0, Basophils % 0.3, Nucleated RBC % 0.0, Neutrophils # 2.2, Lymphocytes # 1.09 L, Monocytes # 0.4, Eosinophils # 0.0, Absolute Basop hils 0.0 04/10/20 07:24: Sodium 135, Plasma Sodium 135, Potassium 3.8, Chloride 102, Carbon Dioxide 24.3, Anion Gap 12.5, BUN 22, Creatinine 1.25, Est GFR (Non-Af Amer) 58 L, BUN/Creatinine Ratio 17.6, Random Glucose 107 D, Calcium 7.9, Calcium Adj for Albumin 8.5, Total Bilirubin 0.8, AST 68 H, ALT 34, Alkaline Phosphatase 50, Total Protein 6.5, Albumin 2.9 L Discharge Location: Home Disposition: Home Health Service Home Health Agency: [facility] Condition: Fair Discharge Activity: Activity as tolerated Discharge Diet: General/regular food Problem Oriented Discharge Instructions to Patient/Family: Acute Kidney Injury, Adult, COVID-19, Community-Acquired Pneumonia, Adult, [id number] Additional Patient Instructions (free text): [facility] new at discharge- please fax discharge instructions, medications, and call report. Prescriptions (Any new or edited meds): Azithromycin [Zithromax] 250 mg PO HS #3 tab Transmission Status: Pending to [facility] [place], [place] Complete Home Medications List: Complete Home Medication List: Aspirin [Aspirin EC] 81 mg PO DAILY 07/19/18 cetirizine 10 mg tablet 10 mg PO DAILY PRN #30 tab 12/11/18 simvastatin 20 mg tablet 20 mg PO HS #90 tab 09/02/19 metoprolol tartrate 25 mg tablet 25 mg PO BID #180 tab 10/31/19 Acetaminophen [Tylenol] 650 mg PO Q6H PRN tablet 04/10/20 Azithromycin [Zithromax] 250 mg PO HS #3 tab 04/10/20 Forms: Patient Portal Registration
[2020-04-10 16:35] VITALS: BP 141/75
== END 2020-04-10 16:01 | disposition home health service (06) | DRG 177 ==
LOC: ER 21:47 → SCU 21:47 → OBSVTOIN 04-07 01:12 → SCU 04-07 02:09
PROVIDERS: ADMIT Internal Medicine; ATTEND Family Medicine
DX: E78.5 Hyperlipidemia, unspecified; I10 Essential (primary) hypertension; F03.90 Unspecified dementia, unspecified severity, without behavioral disturbance, psychotic disturbance, mood disturbance, and anxiety; N17.9 Acute kidney failure, unspecified; R53.1 Weakness; Z23 Encounter for immunization; J12.89 Other viral pneumonia; U07.1 COVID-19